=== PATIENT | male | born 1995 | race Two or more races ===

== ENCOUNTER 2020-05-29 00:48 | Emergency (ER) | payer SELFPAY ==
[~2020-05-29] VITALS: Ht 167.6 cm; Wt 83.9 kg
[2020-05-29 03:00] VITALS: BP 139/94
[2020-05-29] MEDS ORDERED: NEOMYCIN-BACITRACIN-POLYM UNITDOSE PKG TOP OINT TOP ONE (03:15)
[2020-05-29] MEDS ORDERED: TETANUS-DIPTH-ACEL PERTUSSIS 0.5ML SYR Tdap IM ONE (03:15)
== END 2020-05-29 04:34 | disposition home or self-care (01) ==
LOC: ER 00:50
DX: S01.85XA Open bite of other part of head, initial encounter (principal); W54.0XXA Bitten by dog, initial encounter; Y93.89 Activity, other specified; Y92.89 Other specified places as the place of occurrence of the external cause; Y99.8 Other external cause status
CPT/HCPCS: 12013; 90471; 90715

== ENCOUNTER 2020-06-05 18:37 | Emergency (ER) | payer MEDICAID, OTHER ==
[~2020-06-05] VITALS: Ht 167.6 cm; Wt 81.6 kg
[2020-06-05 20:00] VITALS: BP 140/88
== END 2020-06-05 21:40 | disposition home or self-care (01) ==
LOC: ER 18:38
DX: Z48.02 Encounter for removal of sutures (principal)